=== PATIENT | male | born 1985 | race Caucasian/White ===

== ENCOUNTER 2023-07-07 22:32 | Emergency (ER) | payer SELFPAY | END 2023-07-08 01:04 | disposition home or self-care (01) | LOC: JD.ED 22:32 | DX: S06.0X9A Concussion with loss of consciousness of unspecified duration, initial encounter (principal); S13.9XXA Sprain of joints and ligaments of unspecified parts of neck, initial encounter; S63.501A Unspecified sprain of right wrist, initial encounter; F17.210 Nicotine dependence, cigarettes, uncomplicated; W11.XXXA Fall on and from ladder, initial encounter | CPT/HCPCS: 99283 ==